=== PATIENT | male | born 1965 | race Caucasian/White ===

== ENCOUNTER → 2017-11-11 16:08 | Outpatient (CLI) | payer BC, SELFPAY ==
--- NOTE | 2017-11-11 16:45 | MRI_ITS ---
STUDY: MRI LUMBAR SPINE WITHOUT CONTRAST REASON FOR EXAM: Male, 52 years old. Low back pain radiating to right lower extremity TECHNIQUE: Standardized fat and water weighted pulse sequences were obtained in the sagittal and axial planes. COMPARISON: None FINDINGS: T12-L1: Normal endplates. Normal disc height, hydration and morphology. Normal bilateral facet joints. Normal central canal and bilateral lateral recesses. Normal bilateral intervertebral neural foramina. Normal lumbar lordosis. There is no substantial scoliosis. Normal conus medullaris that terminates at T12-L1 L1-2: Normal endplates. Normal disc height, hydration and morphology. Normal bilateral facet joints. Normal central canal and bilateral lateral recesses. Normal bilateral intervertebral neural foramina. L2-3: Normal endplates. Normal disc height, hydration and morphology. Normal bilateral facet joints. Normal central canal and bilateral lateral recesses. Normal bilateral intervertebral neural foramina. L3-4: Normal endplates. Normal disc height, hydration and morphology. Normal bilateral facet joints. Normal central canal and bilateral lateral recesses. Normal bilateral intervertebral neural foramina. L4-5: Normal endplates. Normal disc height, hydration and mild annular bulge. Bilateral facet arthropathy and thickening of ligamenta flava.. Normal central canal. Moderate bilateral recess and neural foraminal encroachment L5-S1: Normal endplates. Normal disc height, hydration and minor annular bulge in association with a large right paracentral/posterolateral disc extrusion with inferior and posterior migration of disc fragment displacing the descending right S1 nerve root. Bilateral facet arthropathy.. Normal central canal. Mild left lateral recess and neural foraminal encroachment. Severe right lateral recess stenosis and subarticular stenosis. Mild right neuroforaminal stenosis Normal visualized sacral ala. Incidental finding of expansile appearing lesion within the left ilium demonstrating increased signal on both T1 and T2 possibly representing cavernous hemangioma. Would recommend CT for further evaluation. Normal visualized paraspinous soft tissue structures. MRI/Spine Lumbar (Routine) IMPRESSION: Spinal stenosis at L5-S1 more severe on the right secondary to large right paracentral/posterolateral disc extrusion with inferior migration of disc fragment. Spinal stenosis at L4-5 secondary to bulging annulus and facet arthropathy. Incidental finding of the lesion within the left ilium possibly representing atypical cavernous hemangioma Other findings as above Electronically Signed: Gopi Don MD at 22:22 EDT , Service support ,
== END ==
PROVIDERS: Visit Provider Anesthesiology Pain Medicine
DX: M54.9 Dorsalgia, unspecified (principal); M79.606 Pain in leg, unspecified
CPT/HCPCS: 72148

== ENCOUNTER → 2018-02-07 16:43 | Outpatient (CLI) | payer BC, SELFPAY ==
--- NOTE | 2018-02-07 16:46 | CT_ITS ---
STUDY: CT PELVIS WITHOUT CONTRAST REASON FOR EXAM: Male, 52 years old. Abnormal MRI RADIATION DOSAGE (If Supplied By Facility): CTDIvol = ( 19.81 ) mGy, DLP = ( 623.06 ) mGycm TECHNIQUE: Transaxial imaging of the pelvis was performed without oral contrast, and without intravenous administration of contrast material. Multiplanar coronal and sagittal images were reformatted. Individualized dose optimization techniques were used for this CT. COMPARISON: MRI lumbar spine 11/11/2017 FINDINGS: Normal urinary bladder. Normal visualized small intestine. There are multiple colonic diverticula of the sigmoid colon consistent with chronic diverticulosis. There is no pelvic fluid. There is no pelvic mass lesion or lymphadenopathy. Normal visualized pelvic arteries. Normal abdominal wall. There is a slightly expansile lesion within the left ilium adjacent to the sacroiliac joint which is mixed attenuation, but predominantly sclerotic. There is some groundglass attenuation within the lesion. This measures approximately 7.3 cm in craniocaudad length, 3.7 cm in AP dimension, and 2 cm transversely. The overlying cortex appears intact. There is no soft tissue mass. Degenerative changes are seen at the sacroiliac joints. CT/Pelvis without IV Contrast IMPRESSION: Mixed sclerotic/lucent lesion within the left ilium overall has a nonaggressive appearance. Question fibrous dysplasia. No cortical destruction or associated soft tissue mass. Electronically Signed: Froy Brownlee DO at 11:36 EDT Tel , Service support ,
== END ==
PROVIDERS: Visit Provider Orthopaedic Surgery Orthopaedic Surgery of the Spine
DX: D49.2 Neoplasm of unspecified behavior of bone, soft tissue, and skin (principal)
CPT/HCPCS: 72192

== ENCOUNTER → 2018-07-14 16:50 | Outpatient (CLI) | payer BC, SELFPAY ==
--- NOTE | 2018-07-14 16:54 | CT_ITS ---
STUDY: CT PELVIS WITHOUT CONTRAST REASON FOR EXAM: Male, 53 years old. Benign pelvic tumor RADIATION DOSAGE (If Supplied By Facility): CTDIvol = ( 14.75 ) mGy, DLP = ( 463.94 ) mGycm TECHNIQUE: Transaxial imaging of the pelvis was performed with oral contrast, and without intravenous administration of contrast material. Individualized dose optimization techniques were used for this CT. COMPARISON: 02/07/2018 FINDINGS: Normal urinary bladder. Normal visualized small intestine. Normal visualized colon. There is no pelvic fluid. There is no pelvic mass lesion or lymphadenopathy. Normal visualized pelvic arteries. Normal abdominal wall. Stable enlargement and trabecular thickening of the left ilium, compatible with Paget's disease. 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 No new soft tissue abnormalities are seen. Electronically Signed: Ruben Hall MD at 0:42 EST Tel , Service support ,
--- OUTSIDE RECORDS SUMMARY | 2018-09-08 22:59 | XMS RPT_ITS ---
:1965 Author Organization [facility] Address [address] [facility] [address] Phone Care Team Providers Name Role Phone Ashley Ruth MD Reason for Visit Reason For Visit Description Start Date Postop - 1st visit Preliminary reason for visit data, not yet signed by the author as of back post Right L5-S1 microdiscectomy. on 03/29/2018 Preliminary reason for visit data, not yet signed by the author as of Chief Complaint Chief Complaint Description Start Date back post Right L5-S1 microdiscectomy. on 03/29/2018 Preliminary chief complaint data, not yet signed by the author as of Instructions Instruction Description Start Date Completed Plan of Care Type Date Detail Appointment 10:10 AM Ashley Ruth MD, [address] [email or web address], [place], [address], Appointment 09:10 AM Ashley Ruth MD, [address] [facility], [email or web address], [place], [address], Medications Medication Instructions Start Stop Generic Name NDC Provider Date Date COLACE 100 MG Take 1 capsule DOCUSATE [id number] Ashley A CAPS by mouth twice 4 SODIUM Faraz BROOKE daily as needed for constipation BACLOFEN 10 MG Take one up to 3 BACLOFEN [id number] Ashley A TABS times per day as 4 Dioksana BROOKE needed for muscle spasm. MELOXICAM 15 MG Take 1 tablet by MELOXICAM [id number] Ashley A TABS mouth daily 4 Faraz BROOKE FISH OIL 1000 MG takes two tabs OMEGA-3 [id number] Ashley A CAPS once daily 4 FATTY ACIDS Faraz BROOKE CALCIUM 600 + D takes one tab CALCIUM [id number] Ashley A 600-200 MG-UNIT once daily 4 CARB-CHOLECA Faraz BROOKE TABS LCIFEROL MULTIVITAMIN takes one tab MULTIPLE [id number] Ashley A ADULTS TABS once daily 4 VITAMINS-MIN Faraz BROOKE ERALS NAPROXEN SODIUM take once daily NAPROXEN [id number] Paulette 220 MG CAPS 4 SODIUM Ean [employer]ERK Conditions or Problems Problem Name Problem Onset Status Entry Provider Comment Standard Annotate Code Date Date Description S/P lumbar [id number] Active Ashley A History of microdiscectomy (SNOMED 04/13 04/[address]) procedure on lumbar spinal structure 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 Vital Signs Date Name Value Unit Description BMI (Body Mass 24.50 kg/m2 Body Mass Index Index) [Ratio] Preliminary vital sign data, not yet signed by the author as of BP Diastolic 70 mm[Hg] blood pressure, diastolic Preliminary vital sign data, not yet signed by the author as of BP Systolic 138 mm[Hg] blood pressure, systolic Preliminary vital sign data, not yet signed by the author as of Heart Rate 59 /min pulse rate E&M Preliminary vital sign data, not yet signed by the author as of Height 72 [in_us] height E&M Preliminary vital sign data, not yet signed by the author as of Height 183 cm height in centimeters E&M Preliminary vital sign data, not yet signed by the author as of Weight Measured 180 [lb_av] weight E&M Preliminary vital sign data, not yet signed by the author as of Weight Measured 82 kg weight in kilograms E&M Preliminary vital sign data, not yet signed by the author as of Results Date Name Value Unit Range Flag Description Office Visit: Postop - 1st visit, Rm: 2 MEDS REVIEW Done Documentation of current medications (procedure) Preliminary observation data, not yet signed by the author as of Preliminary observation data, not yet signed by the author as of Clinical Summary: [facility] OOP account number Procedures Code Procedure Name Date Entry Date G8732 Pain assessment not documented - reason not given G8427 Current medications documented 1036F Tobacco screening was negative - non user G8420 BMI documented within normal parameters - no follow-up plan is required G8783 Blood pressure within normal parameters - no follow-up required [id number] Patient Encounter Medications Administered No information available. Immunizations No information available. Advance Directives There may be information available, but it has not been provided by the sender. Assessments There may be information available, but it has not been provided by the sender. Review of Systems There may be information available, but it has not been provided by the sender. Family History There may be information available, but it has not been provided by the sender. History of Past Illness There may be information available, but it has not been provided by the sender. History of Present Illness There may be information available, but it has not been provided by the sender.
--- OUTSIDE RECORDS SUMMARY | 2018-09-08 22:59 | XMS RPT_ITS ---
:1965 Author Organization OHIP Care Team Providers Name Role Phone Bayron Bernal Attending Unavailable Bayron Bernal Referring Unavailable SANTOS MARCIAL Primary Care Unavailable Bayron Bernal Attending Unavailable Bayron Bernal Referring Unavailable SANTOS MARCIAL Primary Care Unavailable Diulus, Ashley A Attending Unavailable Diulus, Ashley A Referring Unavailable SANTOS MARCIAL Primary Care Unavailable AMANDEEP BURCH Attending Unavailable AMANDEEP BURCH Referring Unavailable SANTOS MARCIAL Primary Care Unavailable MOMO HELLER Attending Unavailable MEDINA FISH M.D. Attending Unavailable MEDINA FISH M.D. 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 Community behavior of bone, Hospital soft tissue, and Repository skin / D49.2(ICD-10) 11/12/2017 Unknown M54.9 - BasaliBayron Active [facility] Dorsalgia, Community unspecified / Hospital M54.9(ICD-10) Repository 11/12/2017 Unknown M79.606 - Pain in Bayron Bernal Active [facility] leg, unspecified Community / M79.606(ICD-10) Hospital Repository 10/07/2017 Admitting Unknown / LETY-SARATH, Active [facility] diagnosis UNK(Unknown) [facility] Hospital Repository PROCEDURES PROCEDURES No Procedure Records FoundRESULTS RESULTS PELVIS WITHOUT IV Observed: 07/14/2018 Status: F Source: [place] CONTRAST 4:55 PM [facility] [place] REPOSITORY [facility] Imaging Services [address] [place] [address] Pelvis without IV Contrast MR#: [id number] Acct: [id number] Name: MARCELLUS SIMONS Rep #: [id number] : 1965 M 53 From: Ruben Hall MD PCP: OUT OF TOWN DOCTOR Status: REG CLI Study: Pelvis without IV Contrast Date of Exam: 07/14/18 Exam# [id number] Ordering Dr: Amandeep Burch STUDY: CT PELVIS WITHOUT CONTRAST REASON FOR EXAM: Male, 53 years old. Benign pelvic tumor RADIATION DOSAGE (If Supplied By Facility): CTDIvol = ( 14.75 ) mGy, DLP = ( 463.94 ) mGycm TECHNIQUE: Transaxial imaging of the pelvis was performed with oral contrast, and without intravenous administration of contrast material. Individualized dose optimization techniques were used for this CT. COMPARISON: 02/07/2018 FINDINGS: Normal urinary bladder. Normal visualized small intestine. Normal visualized colon. There is no pelvic fluid. There is no pelvic mass lesion or lymphadenopathy. Normal visualized pelvic arteries. Normal abdominal wall. Stable enlargement and trabecular thickening of the left ilium, compatible with Paget's disease. 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 No new soft tissue abnormalities are seen. Electronically Signed: Ruben Hall MD at 0:42 EST Tel , Service support , CC: OUT OF TOWN DOCTOR; AMANDEEP BURCH Conventional Mortgage Underwriter: Signed PROGRESS Observed: 05/06/2018 Status: COMPLETED Source: [place] 2:20 PM [facility] REPOSITORY HNO ID: [id number] Author: Greer Mack) Te Service: (none) Author Type: Director Of Diagnostic Imaging Type: Progress Notes Filed: 05/06/2018 2:55 PM Note Text: SUBJECTIVE: Marcellus Simons is a 52 year old male here today for an annual physical. I reviewed his past medical, surgical, social, and family histories today and updated chart. Allergies, chronic medications, and supplements were also reviewed and his list in the chart is now up to date. Concern(s) today include: Would like to proceed with sleep study testing - witnesses snoring and apnea spells. Has witnessed apnea episodes. His medications were reviewed today and his list is now up to date. He is compliant on taking his medications :Yes He is tolerating his medication(s) without side effects: Yes He is following an appropriate diet for his medical problems: Yes He is getting some exercise in? Yes Social History Substance Use Topics - Smoking status: Never Smoker - Smokeless tobacco: Never Used - Alcohol use No Comment: None in last month, 4-5/wk previously. Review of Systems Constitutional: Negative for chills, diaphoresis, fatigue and fever. HENT: Negative for congestion, postnasal drip and sore throat. Respiratory: Negative for cough, shortness of breath and wheezing. Snoring Cardiovascular: Negative for chest pain. Gastrointestinal: Negative for abdominal pain, constipation, diarrhea, nausea and vomiting. Endocrine: Negative for cold intolerance. Musculoskeletal: Negative for back pain, gait problem, joint swelling, myalgias, neck pain and neck stiffness. Skin: Negative for rash and wound. Neurological: Negative for dizziness, numbness and headaches. Hematological: Negative for adenopathy. Does not bruise/bleed easily. Psychiatric/Behavioral: Negative for dysphoric mood. The patient is not nervous/anxious. BP 126/74 Pulse 72 Ht 182.9 cm (6') Wt 82.6 kg (182 lb) SpO2 97% BMI 24.68 kg/m? BMI 24.68 kg/(m2) Physical Exam Constitutional: He is oriented to person, place, and time. He appears well-developed and well-nourished. Cardiovascular: Normal rate and normal heart sounds. Pulmonary/Chest: Effort normal and breath sounds normal. He has no wheezes. Abdominal: Soft. Bowel sounds are normal. Musculoskeletal: Normal range of motion. Neurological: He is alert and oriented to person, place, and time. He has normal reflexes. Nursing note and vitals reviewed. ASSESSMENT AND PLAN: 1) See diagnoses and orders for additional plan(s). 2) Medications were reviewed, list was updated, and refills given if needed. 3) Encouraged proper diet and exercise. 4) Age appropriate health preventative measures were discussed. 5) Follow up as listed below. 6) Ordered split night PSG. 7) Labs reviewed and are excellent. ASCVD risk score 5%. Medina Fish MD CNOV Observed: 05/06/2018 Status: COMPLETED Source: [place] 2:00 PM [facility] REPOSITORY Office Visit (FMUPCE) VALENTINMARCELLUS Tim ([id number]) 1965 M Date Time Provider Department 05/06/18 2:00 PM MEDINA FISH UPCE During your visit today, we recorded the following information about you: Pulse Blood pressure Weight Height 72/minute 126/74 82.6 kg 1.829 m Greer Tiwari MA 05/06/2018 2:21 PM Signed SUBJECTIVE: Marcellus Simons is a 52 year old male here today for an annual physical. I reviewed his past medical, surgical, social, and family histories today and updated chart. Allergies, chronic medications, and supplements were also reviewed and his list in the chart is now up to date. Concern(s) today include: Would like to proceed with sleep study testing - witnesses snoring and apnea spells. Has witnessed apnea episodes. His medications were reviewed today and his list is now up to date. He is compliant on taking his medications :Yes He is tolerating his medication(s) without side effects: Yes He is following an appropriate diet for his medical problems: Yes He is getting some exercise in? Yes Social History Substance Use Topics - Smoking status: Never Smoker - Smokeless tobacco: Never Used - Alcohol use No Comment: None in last month, 4-5/wk previously. Review of Systems Constitutional: Negative for chills, diaphoresis, fatigue and fever. HENT: Negative for congestion, postnasal drip and sore throat. Respiratory: Negative for cough, shortness of breath and wheezing. Snoring Cardiovascular: Negative for chest pain. Gastrointestinal: Negative for abdominal pain, constipation, diarrhea, nausea and vomiting. Endocrine: Negative for cold intolerance. Musculoskeletal: Negative for back pain, gait problem, joint swelling, myalgias, neck pain and neck stiffness. Skin: Negative for rash and wound. Neurological: Negative for dizziness, numbness and headaches. Hematological: Negative for adenopathy. Does not bruise/bleed easily. Psychiatric/Behavioral: Negative for dysphoric mood. The patient is not nervous/anxious. BP 126/74 Pulse 72 Ht 182.9 cm (6') Wt 82.6 kg (182 lb) SpO2 97% BMI 24.68 kg/m? BMI 24.68 kg/(m2) Physical Exam Constitutional: He is oriented to person, place, and time. He appears well-developed and well-nourished. Cardiovascular: Normal rate and normal heart sounds. Pulmonary/Chest: Effort normal and breath sounds normal. He has no wheezes. Abdominal: Soft. Bowel sounds are normal. Musculoskeletal: Normal range of motion. Neurological: He is alert and oriented to person, place, and time. He has normal reflexes. Nursing note and vitals reviewed. ASSESSMENT AND PLAN: 1) See diagnoses and orders for additional plan(s). 2) Medications were reviewed, list was updated, and refills given if needed. 3) Encouraged proper diet and exercise. 4) Age appropriate health preventative measures were discussed. 5) Follow up as listed below. 6) Ordered split night PSG. 7) Labs reviewed and are excellent. ASCVD risk score 5%. Medina Fish MD Referring Provider: MEDINA FISH [[id number]] Allergies As of Date: 05/06/2018 (No Known Allergies) Date Reviewed: 05/06/2018 Reviewed by: Medina Fish - Fully Assessed Reason for Visit: Yearly Exam [187] Cmt: lab review Reason For Visit History Recorded Primary Visit Diagnosis:Well adult exam [Z00.00] Other Visit Diagnosis:OSWALD (obstructive sleep apnea) [G47.33] Order(s):INFLUENZA VACCINE QUADRIVALENT AGE 3 YRS PLUS + IM [42107UNG] Order #: [id number] MULTIPLE SLEEP LATENCY TEST [[id number]] Order #: [id number] FUTURE Prescriptions as of 05/06/2018 Sig: MULTIVITAMIN 50 PLUS ORAL Take 1 tablet by mouth once d* CALCIUM 600 + D ORAL Take 1 tablet by mouth once d* OMEGA 2-OCJ-YLL-FISH OIL 1,00* Take 2 tablets by mouth once * BACLOFEN 10 MG TABLET Take 1 tablet by mouth three * MELOXICAM 15 MG TABLET Take 15 mg by mouth once michelle* MELOXICAM 15 MG TABLET Take 15 mg by mouth once michelle* BACLOFEN 10 MG TABLET TAKE ONE TABLET BY MOUTH UP T* TRIAMCINOLONE ACETONIDE 0.1 %* apply 1 application to the af* TRAMADOL 50 MG TABLET Take 50 mg by mouth every 6 h* MULTIVITAMIN TABLET Take one(1) tablet daily. Patient not taking: Reported on 05/06/2018 Problem List As Of Date 05/06/2018 Noted Resolved SKIN SENSATION DISTURB [R20.9] INVALID FOR* Solar lentiginosis [L81.4] Multiple nevi [D22.9] Lumbar pain with radiation down right leg [M54.* History of dysplastic nevus [Z86.018] Herniation of intervertebral disc between L5 an* Generalized anxiety disorder [F41.1] Familial hyperlipidemia, high LDL [E78.4] Chronic back pain [M54.9, G89.29] Disposition: Return in about 1 year (around 05/06/2019) for Well Exam. Follow-up and Disposition History Recorded Encounter Status:Closed by MEDINA FISH MD on 05/06/18 BMP Collected: 05/04/2018 Status: F Source: [facility] 7:14 AM HOSPITAL REPOSITORY TYPE CODE TESTS RESULT OUT OF RANGE REFERENCE UNITS LAB L100.0060 74-106 mg/dL GLUCOSE Normal 96 LAB L100.0110 6-20 mg/dL High BUN 26 LAB L100.0131 0.70-1.20 mg/dL Normal CREATININE 1.15 LAB L100.0140 8.6-10.0 mg/dL CALCIUM Normal 9.3 LAB L100.0150 135-145 mmol/L SODIUM Normal 143 LAB L100.0160 3.5-5.0 mmol/L Normal POTASSIUM 4.1 LAB L100.0170 98-107 mmol/L CHLORIDE Normal 105 LAB L100.0180 22-29 mmol/L TCO2 Normal 26 LAB L100.0185 15-22 mmol/L ANION Normal GAP 16.1 LAB L100.0274 eGFR Normal nonAFR Alida > 60 ml/Min/1.73m 2 LAB L100.0275 eGFR if Normal AFR ALIDA > 60 ml/min/1.73m 2 Result Comment: eGFR >= 60 Indicates normal kidney function. * eGFR IS AN ESTIMATE * (AFR ALIDA = ) (non-AFR AM = NON-) MDRD calculation used in the eGFR should not be used to dose medications. For further limitations of the eGFR please refer to the Physician Website or the National Kidney Disease Education Program website (www.nkdep.nih.gov). Performed By: #### L100.0010, L100.0040, L304.0150 #### [facility] - LABORATORY [address] [place] [address] LIPID PANEL Collected: 05/04/2018 Status: F Source: [facility] 7:14 AM HOSPITAL REPOSITORY TYPE CODE TESTS RESULT OUT OF REFERENCE UNITS RANGE LAB L100.0280 130-200 mg/dL CHOLESTEROL Normal 199 LAB L100.0290 mg/dL TRIGLYCERIDE Normal 68 Result Comment: TRIG: DESIRABLE: <150 mg/dL LAB L100.0300 mg/dL Normal HDL 50 Result Comment: National Cholesterol Education Program (NCEP) guidelines: <40 mg/dL: Low HDL-Cholesterol(major risk factor for CHD) > or = 60 mg/dL: High HDL-Cholesterol(negative risk factor for CHD) HDL-cholesterol is affected by a number of factors, e.g., smoking, exercise, hormones, sex, and age. 4th Generation Test; Results may be approximately 7% lower than previous values. LAB L100.0310 6-40 mg/dL Normal VLDL 14 LAB L100.0320 mg/dL Normal LDL 135 Result Comment: LDL: OPTIMAL FOR PEOPLE AT VERY HIGH RISK <70 OPTIMAL <100 NEAR OPTIMAL 100-129 BORDERLINE HIGH 130-159 HIGH 160-189 VERY HIGH >=190 Source: 2009 NCEP ATP III, ADA Guidelines Reviewed: November, LAB L100.0330 Normal LDL/HDL RATIO 2.7 Performed By: #### L100.0010, L100.0040, L304.0150 #### [facility] [address] [place] [address] PSASC Collected: 05/04/2018 Status: F Source: [facility] 7:14 AM HOSPITAL REPOSITORY TYPE CODE TESTS RESULT OUT OF RANGE REFERENCE UNITS LAB L304.0150 0.0-3.1 ng/mL Normal PSASC 1.8 Result Comment: Limitations: Elevations may also be associated with urethral instrumentation including catheterization of the bladder, TUR, prostatic needle biopsy, urinary retention, or prostatic infarct. Because PSA is also present in para-urethral and anal glands, as well as in breast tissue or with breast cancer, low levels of PSA can also be detected in sera from women. PSA may still be detectable even after radical prostatectomy. Performed By: #### L100.0010, L100.0040, L304.0150 #### [facility] [address] [place] [address] PELVIS WITHOUT IV Observed: 02/07/2018 Status: F Source: [place] CONTRAST 4:46 PM [facility] REPOSITORY [facility] Imaging Services [address] [place] [address] Pelvis without IV Contrast MR#: [id number] Acct: [id number] Name: MARCELLUS SIMONS Rep #: [id number] : 1965 M 52 From: Froy Brownlee DO PCP: OUT OF TOWN DOCTOR Status: REG CLI Study: Pelvis without IV Contrast Date of Exam: 02/07/18 Exam# [id number] Ordering Dr: Ashley Ruth MD STUDY: CT PELVIS WITHOUT CONTRAST REASON FOR EXAM: Male, 52 years old. Abnormal MRI RADIATION DOSAGE (If Supplied By Facility): CTDIvol = ( 19.81 ) mGy, DLP = ( 623.06 ) mGycm TECHNIQUE: Transaxial imaging of the pelvis was performed without oral contrast, and without intravenous administration of contrast material. Multiplanar coronal and sagittal images were reformatted. Individualized dose optimization techniques were used for this CT. COMPARISON: MRI lumbar spine 11/11/2017 FINDINGS: Normal urinary bladder. Normal visualized small intestine. There are multiple colonic diverticula of the sigmoid colon consistent with chronic diverticulosis. There is no pelvic fluid. There is no pelvic mass lesion or lymphadenopathy. Normal visualized pelvic arteries. Normal abdominal wall. There is a slightly expansile lesion within the left ilium adjacent to the sacroiliac joint which is mixed attenuation, but predominantly sclerotic. There is some groundglass attenuation within the lesion. This measures approximately 7.3 cm in craniocaudad length, 3.7 cm in AP dimension, and 2 cm transversely. The overlying cortex appears intact. There is no soft tissue mass. Degenerative changes are seen at the sacroiliac joints. CT/Pelvis without IV Contrast IMPRESSION: Mixed sclerotic/lucent lesion within the left ilium overall has a nonaggressive appearance. Question fibrous dysplasia. No cortical destruction or associated soft tissue mass. Electronically Signed: Froy Brownlee DO at 11:36 EDT Tel , Service support , CC: Ashley Ruth MD; OUT OF TOWN DOCTOR Conventional Mortgage Underwriter: Signed SPINE LUMBAR Observed: 11/11/2017 Status: F Source: [place] (ROUTINE) 4:12 PM [facility] REPOSITORY [facility] Imaging Services [address] [place] [address] Spine Lumbar (Routine) MR#: [id number] Acct: [id number] Name: MARCELLUS SIMONS Rep #: [id number] : 1965 M 52 From: Gopi Don MD PCP: OUT OF TOWN DOCTOR Status: REG CLI Study: Spine Lumbar (Routine) Date of Exam: 11/11/17 Exam# [id number] Ordering Dr: Bayron Bernal MD STUDY: MRI LUMBAR SPINE WITHOUT CONTRAST REASON FOR EXAM: Male, 52 years old. Low back pain radiating to right lower extremity TECHNIQUE: Standardized fat and water weighted pulse sequences were obtained in the sagittal and axial planes. COMPARISON: None FINDINGS: T12-L1: Normal endplates. Normal disc height, hydration and morphology. Normal bilateral facet joints. Normal central canal and bilateral lateral recesses. Normal bilateral intervertebral neural foramina. Normal lumbar lordosis. There is no substantial scoliosis. Normal conus medullaris that terminates at T12-L1 L1-2: Normal endplates. Normal disc height, hydration and morphology. Normal bilateral facet joints. Normal central canal and bilateral lateral recesses. Normal bilateral intervertebral neural foramina. L2-3: Normal endplates. Normal disc height, hydration and morphology. Normal bilateral facet joints. Normal central canal and bilateral lateral recesses. Normal bilateral intervertebral neural foramina. L3-4: Normal endplates. Normal disc height, hydration and morphology. Normal bilateral facet joints. Normal central canal and bilateral lateral recesses. Normal bilateral intervertebral neural foramina. L4-5: Normal endplates. Normal disc height, hydration and mild annular bulge. Bilateral facet arthropathy and thickening of ligamenta flava.. Normal central canal. Moderate bilateral recess and neural foraminal encroachment L5-S1: Normal endplates. Normal disc height, hydration and minor annular bulge in association with a large right paracentral/posterolateral disc extrusion with inferior and posterior migration of disc fragment displacing the descending right S1 nerve root. Bilateral facet arthropathy.. Normal central canal. Mild left lateral recess and neural foraminal encroachment. Severe right lateral recess stenosis and subarticular stenosis. Mild right neuroforaminal stenosis Normal visualized sacral ala. Incidental finding of expansile appearing lesion within the left ilium demonstrating increased signal on both T1 and T2 possibly representing cavernous hemangioma. Would recommend CT for further evaluation. Normal visualized paraspinous soft tissue structures. MRI/Spine Lumbar (Routine) IMPRESSION: Spinal stenosis at L5-S1 more severe on the right secondary to large right paracentral/posterolateral disc extrusion with inferior migration of disc fragment. Spinal stenosis at L4-5 secondary to bulging annulus and facet arthropathy. Incidental finding of the lesion within the left ilium possibly representing atypical cavernous hemangioma Other findings as above Electronically Signed: Gopi Don MD at 22:22 EDT , Service support , CC: Bayron Bernal MD; OUT OF TOWN DOCTOR Conventional Mortgage Underwriter: Signed LUMBAR LIMITED 2V Observed: 10/07/2017 Status: F Source: [facility] 12:00 AM [place] [address] Name: MARCELLUS SIMONS Phys: MOMO HELLER CIGARETTE SELLER-C ([facility] : [birth year] Age: 52 Sex: M Acct: [id number] Loc: RAD Exam Date: 10/07/17 Status: REG CLI Radiology No.: [id number] Unit Number: [id number] Exam # Type/Exam [id number] RAD / LUMBAR LIMITED 2V LUMBAR SPINE AP, LATERAL, 3 views INDICATION: Back pain, injury COMPARISON: none FINDINGS: 5 lumbar-type vertebral bodies show normal height and alignment. There is smooth SCHMORL node indentations at multiple levels. 4 mm of retrolisthesis at L5-S1 is on a degenerative basis with moderate disc space narrowing and moderate to severe facet arthropathy. IMPRESSION: Degenerative changes. No acute findings. Professional interpretation provided by [facility], [place] on [facility]--47. Thank you for this referral. <<Signature on File>> Reported By: DONAVON CLEANING M.D. Signed In NovaPro By: DONAVON CLEANING M.D. << Signature on File>> Reported By: DONAVON CLEANING M.D. Signed By: DONAVON CLEANING M.D. Tests performed at: [address] [address] ALLERGIES ALLERGIES No Allergies Records FoundENCOUNTERS ENCOUNTERS ADMIT/DISCHARGE ACCOUNT ADMITTING ENCOUNTER LOCATION SOURCE NUMBER CLASS 07/14/2018 [id number] Ambulatory [facility] [address] [place] [address] ing:CT Repository 05/29/2018 [id number] Ambulatory UNIBuilding:S [address] Repository 05/04/2018 [id number] Ambulatory UNIBuilding:L [address] Repository 02/07/2018 [id number] Ambulatory Lilly Lilly [facility] ing:CT Repository 11/18/2017 [id number] Ambulatory [facility] 7 [facility] ing:PT Repository 11/11/2017 [id number] Ambulatory [facility] 1 [facility] ing:MRI Repository 10/07/2017 [id number] Ambulatory UNIBuilding:R [address] Repository PAYERS PAYERS ENCOUNTER GUARANTOR PAYER SUBSCRIBER SOURCE 07/14/2018 MARCELLUS Dumont Primary MARCELLUS Campososter [id number] SR [facility] 83UNIT y Number: [id number] Repository [place] [address]Rrj: Date:4385-94-04WQ [address] [place] [address] ) [address]DB: 07/14/2018 Secondary NOT GIVENUNK Lilly Insurance:SELF PAY [facility] Number: Effective Repository Date:2018-07-12 05/29/2018 MARCELLUS Dumont Primary [facility]US [id number] [address] ALLPolicy Number: Repository [address] [id number] [address], Date:2014-01-14 [place] [address]Zdd: () 05/04/2018 MARCELLUS Dumont Primary MARCELLUS Dumont [facility] [id number] [place] [place]: Repository 83UNIT [id number] [address] [place] [address], Date: [place] [address]Xym: () 02/07/2018 MARCELLUS Dumont Primary MARCELLUS Dumont Lilly [id number] SR Insurance:ANTHEMPolic HARNISHDOB: Community 83UNIT y Number: [id number], [id number] Repository [place] [address]Mej: Date:6862-28-93YY [address]KCKHCCSB[address]E [place] () [address]LS: 02/07/2018 Secondary NOT GIVENUNK Lilly Insurance:SELF PAY [facility] Number: Effective Repository Date:2018-01-12 11/18/2017 MARCELLUS Dumont Primary MARCELLUS Campososter [id number] SR Insurance:ANTHEMPolic HARNISHDOB: Community 83UNIT y Number: [id number], [id number] Repository [place] [address]Guq: Date:8112-25-87VH [address]RTB[address]F, [place] () [address]FL: 11/18/2017 Secondary NOT GIVENUNK [facility] Insurance:SELF PAY [facility] Number: Effective Repository Date:2017-11-05 11/11/2017 MARCELLUS Dumont Primary MARCELLUS Campososter [id number] SR Insurance:ANTHEMPolic HARNISHDOB: Community 83UNIT y Number: [id number], [id number] Repository [place] [address]Poy: Date:2429-36-89PE [address]JENQOPUBET[address]E [place] () [address]MK: 11/11/2017 Secondary NOT GIVENUNK Lilly Insurance:SELF PAY [facility] Number: Effective Repository Date:2017-11-04 10/07/2017 MARCELLUS Dumont Primary MARCELLUS Dumont [place] [address] [place] [place]: Repository 83UNIT [id number] [address] [place] [address], Date: [place] [address]Hff: ()
--- OUTSIDE RECORDS SUMMARY | 2018-09-08 22:59 | XMS RPT_ITS ---
:1965 Author Organization [place] Address [facility] [facility] [place] [address] Phone Care Team Providers Name Role Phone Ashley Ruth MD Unavailable Reason for Visit Reason For Visit Description Start Date Postop - subsequent visit Preliminary reason for visit data, not yet signed by the author as of lower back post Right L5-S1 microdiscectomy. on 03/29/2018 Preliminary reason for visit data, not yet signed by the author as of Chief Complaint Chief Complaint Description Start Date lower back post Right L5-S1 microdiscectomy. on 03/29/2018 Preliminary chief complaint data, not yet signed by the author as of Instructions Instruction Description Start Date Completed Plan of Care Type Date Detail Appointment 09:10 AM Ashley Ruth MD, [facility] [facility], [place], [address], Appointment 07:00 AM Roxana Shah PT, [address] [facility] [address], [place], [address], Appointment 08:10 AM Ashley Ruth MD, [address] [facility], [email or web address], [place], [address], Medications Medication Instructions Start Stop Generic Name NDC Provider Date Date BACLOFEN 10 MG Take one up to 3 BACLOFEN [id number] Ashley Rosas TABS times per day as 4 Faraz BROOKE needed for muscle spasm. MELOXICAM 15 MG Take 1 tablet by MELOXICAM [id number] Ashley A TABS mouth daily 4 aFraz BROOKE FISH OIL 1000 MG takes two tabs OMEGA-3 [id number] Ashley A CAPS once daily 4 FATTY ACIDS Faraz BROOKE CALCIUM 600 + D takes one tab CALCIUM [id number] Ashley A 600-200 MG-UNIT once daily 4 CARB-CHOLECA Faraz BROOKE TABS LCIFEROL MULTIVITAMIN takes one tab MULTIPLE [id number] Ashley A ADULTS TABS once daily 4 VITAMINS-MIN Faraz BROOKE ERALS Conditions or Problems Problem Name Problem Onset Status Entry Provider Comment Standard Annotate Code Date Date Description S/P lumbar 307172323 Active Ashley A History of microdiscectomy (SNOMED 04/13 04/[address]) procedure on lumbar spinal structure 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 Vital Signs Date Name Value Unit Description BMI (Body Mass 24.91 kg/m2 Body Mass Index Index) [Ratio] Preliminary vital sign data, not yet signed by the author as of BP Diastolic 71 mm[Hg] blood pressure, diastolic Preliminary vital sign data, not yet signed by the author as of BP Systolic 122 mm[Hg] blood pressure, systolic Preliminary vital sign data, not yet signed by the author as of Heart Rate 60 /min pulse rate E&M Preliminary vital sign data, not yet signed by the author as of Height 72 [in_us] height E&M Preliminary vital sign data, not yet signed by the author as of Height 183 cm height in centimeters E&M Preliminary vital sign data, not yet signed by the author as of Weight Measured 183 [lb_av] weight E&M Preliminary vital sign data, not yet signed by the author as of Weight Measured 83 kg weight in kilograms E&M Preliminary vital sign data, not yet signed by the author as of Results Date Name Value Unit Range Flag Description Office Visit: Postop - subsequent visit, Rm: PT2 MEDS REVIEW Done Documentation of current medications (procedure) Preliminary observation data, not yet signed by the author as of XRAY HX of the lumbar xray history spine on 01/06/2018 at [facility] Preliminary observation data, not yet signed by the author as of MRI HX of the lumbar MRI (magnetic spine on resonance 11/11/2017 at imaging) [facility] Preliminary observation data, not yet signed by the author as of Preliminary observation data, not yet signed by the author as of Clinical Summary: HMSPatientID OOP account number Procedures Code Procedure Name Date Entry Date [id number]-46308 Physical Therapy G8509 Pain assessment documented as positive - no follow-up/reason not given G8427 Current medications documented 1036F Tobacco screening was negative - non user G8420 BMI documented within normal parameters - no follow-up plan is required G8783 Blood pressure within normal parameters - no follow-up required [facility]-[id number] Patient Encounter Medications Administered No information available. [...]
== END ==
PROVIDERS: Referring Provider Orthopaedic Surgery; Visit Provider Orthopaedic Surgery
DX: D16.8 Benign neoplasm of pelvic bones, sacrum and coccyx (principal)
CPT/HCPCS: 72192

== ENCOUNTER → 2019-07-17 17:44 | Outpatient (CLI) | payer BC, SELFPAY ==
--- NOTE | 2019-07-17 17:50 | CT_ITS ---
STUDY: CT PELVIS WITHOUT CONTRAST REASON FOR EXAM: Male, 54 years old. Benign neoplasm of the pelvis RADIATION DOSAGE (If Supplied By Facility): CTDIvol = ( 17.19 ) mGy, DLP = ( 527.95 ) mGycm TECHNIQUE: Transaxial imaging of the pelvis was performed with oral contrast, and without intravenous administration of contrast material. Individualized dose optimization techniques were used for this CT. COMPARISON: July 14, 2018 FINDINGS: Normal urinary bladder. Normal visualized small intestine. Normal visualized colon. There is no pelvic fluid. There is no pelvic mass lesion or lymphadenopathy. Normal visualized pelvic arteries. Normal abdominal wall. There is diffuse bony bridging of the left sacroiliac joint and mild arthritic changes on the right There are focal radiolucencies with sclerotic rims in the left iliac wing probably benign most likely representing fibrous dysplasia or enchondroma. 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 No acute abnormality.. Electronically Signed: Gopi Don MD at 21:31 EST , Service support ,
== END ==
PROVIDERS: Referring Provider Orthopaedic Surgery; Visit Provider Orthopaedic Surgery
DX: D16.8 Benign neoplasm of pelvic bones, sacrum and coccyx (principal)
CPT/HCPCS: 72192